=== PATIENT | male | born 1990 | race American Indian/Alaskan Native ===

== ENCOUNTER 2017-01-20 16:10 | Emergency (ER) | payer OTHER ==
[2017-01-20] MEDS ORDERED: Ketorolac 60 MG/2 ML SDV IM ONE (16:44)
--- NOTE | 2017-01-20 16:55 | EDM.PDOC ---
ED HPI Trauma - General Chief Complaint: Upper Extremity Injury/Pain Stated Complaint: LEFT ARM PAIN Time Seen by Provider: 01/20/17 16:30 Source: Reports: Patient History Limitations: Reports: No limitations - History of Present Illness INITIAL COMMENTS - FREE TEXT/NARRATIVE: 26 yo male was seen last year by a local PA for left epicondylitis. He was treated then with tramadol which he is out of. Pain has gotten worse again over the past week. Called the office and was referred to a pain clinic in [place] but cannot get in for a few weeks. He called an orthopedic doctor in [place] that he had also seen in the past and he cannot get in for a few weeks there either. Uses his hands a lot at work and so now due to the pain he comes from work for evaluation. Symptom Onset Date: 01/14/17 Occurred When: last week Occurred Where: work Method of Injury: other (likely overuse) Severity: severe Pain/Injury Location: Reports: upper extremity, left Consciousness: Reports: no loss of consciousness Associated Symptoms: Reports: denies other symptoms Allergies/ADRs: Allergies No Known Allergies Allergy (Verified 02/29/16 22:15) Home Medications: Ambulatory Orders clonazePAM [Clonazepam] 1 mg PO TID PRN 04/10/15 [Confirmed 08/17/16] Ibuprofen 800 mg PO TID PRN #30 tablet 01/20/17 Past Medical History - Past Health History Medical/Surgical History: Denies Medical/Surgical History Psychiatric History: Reports: Anxiety, Depression, Panic attack Social & Family History - Family History Family Medical History: Noncontributory - Tobacco Use Smoking Status *Q: Current Some Day Smoker Years of Tobacco use: 7 Packs/Tins Daily: 0.5 Used Tobacco, but Quit: No Second Hand Smoke Exposure: Yes - Caffeine Use Caffeine Use: Reports: Coffee, Soda, Tea - Alcohol Use Days Per Week of Alcohol Use: 1 Number of Drinks Per Day: 5 Total Drinks Per Week: 5 - Recreational Drug Use Recreational Drug Use: No Review of Systems - Review of Systems Review Of Systems: See Below Constitutional: Reports: no symptoms Respiratory: Reports: No Symptoms Cardiovascular: Reports: no symptoms GI/Abdominal: Reports: No symptoms Genitourinary: Reports: no symptoms Musculoskeletal: Reports: arm pain (L elbow) Skin: Reports: no symptoms Neurological: Reports: No Symptoms Psychiatric: Reports: no symptoms Trauma Exam - Physical Exam Exam: See Below Exam Limited By: No limitations General Appearance: Reports: alert, WD/WN, mild distress Head: Reports: atraumatic, normocephalic Extremities: Reports: no evidence of injury, normal range of motion, bony-point tenderness, pain with movement, tenderness, other (Tenderness over lateral epicondyle with resisted pronation. Also tender distal triceps area. ) Neurologic: Reports: no motor/sensory deficits, alert, normal mood/affect, oriented x 3 Skin: Reports: Normal color, Warm/dry Course - Vital Signs Text/Narrative:: Toradol 60 mg IM Tennis elbow strap given. - Orders/Labs/Meds Meds: Medications Discontinued Medications Generic Name Dose Route Start Last Admin Trade Name Freq PRN Reason Stop Dose Admin Ketorolac Tromethamine 60 mg 01/20/17 16:44 Toradol IM 01/20/17 16:45 ONETIME ONE Departure - Departure Time of Disposition: 17:00 Disposition: Home, Self-Care 01 Condition: fair Clinical Impression: Triceps tendonitis Tennis elbow Qualifiers: Laterality: left Qualified Code(s): M77.12 - Lateral epicondylitis, left elbow Prescriptions: Ibuprofen 800 mg PO TID PRN #30 tablet PRN Reason: Pain Referrals: PCP,None [Primary Care Provider] - Forms: Return to Work/School Form Additional Instructions: Take Ibuprofen 800 mg every 8 hrs with food. Add acetaminophen 1000 mg every 6 hrs for added relief as needed. Ice the tender areas 3 times a day for 20 minutes. Avoid using your left arm as much as possible. Follow up with Dr. Malave(orthopedics) as soon as possible. Wear the tennis elbow strap loosely and tighten it up when/if you need to use your left hand/arm to perform any tasks.
[2017-01-20 19:59] VITALS: BP 146/95
== END 2017-01-20 16:59 | disposition home or self-care (01) ==
LOC: FB.ED 16:10
DX: M77.8 Other enthesopathies, not elsewhere classified (principal)
CPT/HCPCS: 29125; 99282; J1885; 96372

== ENCOUNTER 2017-10-09 01:15 | Emergency (ER) | payer OTHER ==
[2017-10-09] MEDS ORDERED: Lidocaine 2% 5 ML SDV INFILT ONE (01:16)
[2017-10-09] MEDS ORDERED: Ketorolac 60 MG/2 ML SDV IM ONE (01:47)
[2017-10-09 03:08] VITALS: BP 142/88
--- NOTE | 2017-10-09 03:10 | ER ---
DATE SEEN: 10/09/2017 CHIEF COMPLAINT: Pain shoulder. HISTORY OF PRESENT ILLNESS: A 26-year-old male with pain in the left shoulder that started about 1900 left side, radiates to the neck with no direct trauma. Tried tramadol at home with no relief. PAST MEDICAL HISTORY: Chronic elbow pain. MEDICATIONS: 1. Tramadol p.r.n. 2. Xanax. ALLERGIES: No known allergies. PHYSICAL EXAMINATION: VITAL SIGNS: Blood pressure and temperature within normal limits. MUSCULOSKELETAL: Left shoulder, no obvious swelling or deformity. There is tenderness in the trapezius muscle and subscapular and supraspinatus muscles on the left side. Range of motion of the shoulder is normal. NECK: Supple. MENTAL STATUS: Anxious. IMPRESSION: Myofascial pain. PLAN: 1. I prepped the area on the left shoulder area, the 3 muscles above-mentioned where there was tenderness, and injected into the trigger point 0.5 mL of 2% lidocaine into three separate areas. There were no complications. 2. Toradol 60 mg IM. 3. Flexeril 10 mg at bedtime. 4. Naproxen 5 mg b.i.d. The patient is advised to see Rosanne Epstein on Thursday or return to the ED with worsening symptoms. TIME SEEN: 206. /[id number] VERONICA/NATTY
== END 2017-10-09 02:53 | disposition home or self-care (01) ==
LOC: FB.ED 01:15
DX: M79.1 Myalgia (principal); M25.512 Pain in left shoulder
CPT/HCPCS: 96372; 99282; J1885

== ENCOUNTER 2017-12-10 06:49 | Emergency (ER) | payer OTHER ==
[2017-12-10] MEDS ORDERED: Bupivacaine 0.5% 30 ML SDV INFILT ONE (06:50)
[2017-12-10] MEDS ORDERED: Thiamine 200 MG/2 ML MDV IM ONE (08:03)
[2017-12-10] MEDS ORDERED: Sodium Chloride 0.9% 1,000 ML IV ONE (08:03)
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
[2017-12-10 09:14] VITALS: BP 137/79
== END 2017-12-10 09:10 | disposition home or self-care (01) ==
LOC: FB.ED 06:49
DX: S41.102A Unspecified open wound of left upper arm, initial encounter (principal); F17.210 Nicotine dependence, cigarettes, uncomplicated; F10.129 Alcohol abuse with intoxication, unspecified; X99.1XXA Assault by knife, initial encounter
CPT/HCPCS: 12001; 80305; 99283

== ENCOUNTER 2019-06-05 18:30 | Emergency (ER) | payer OTHER ==
--- NOTE | 2019-06-05 19:15 | EDM.PDOC ---
ED HPI GENERAL MEDICAL PROBLEM - General Stated Complaint: R FOOT INJURY Time Seen by Provider: 06/05/19 18:30 Source of Information: Reports: Patient History Limitations: Reports: No Limitations - History of Present Illness INITIAL COMMENTS - FREE TEXT/NARRATIVE: 28 y.o.w.m came to the ed after his child stepped onto his right little toes. Pt took some Motrin with out relief. No open wound. No other acute med issues. BP 124/63 Pulse 109 o2 sat 98% on RA Temp 36.6 Onset Date: 06/05/19 Onset Time: 14:00 Duration: Hour(s): Location: Reports: Lower Extremity, Right (little toe) Quality: Reports: Dull Severity: Mild Improves with: Reports: Rest Worsens with: Reports: Movement Context: Reports: Trauma Associated Symptoms: Reports: No Other Symptoms - Related Data Allergies Allergy/AdvReac Type Severity Reaction Status Date / Time No Known Allergies Allergy Verified 10/31/18 07:11 Home Meds: Home Meds .Anxiety Medications--Name? 1 tab PO ASDIRECTED 10/31/18 [History] Past Medical History - Past Health History Medical/Surgical History: Denies Medical/Surgical History Musculoskeletal History: Reports: Other (See Below) Other Musculoskeletal History: L tennis & golf elbow Psychiatric History: Reports: Anxiety, Depression, Panic Attack - Past Surgical History Musculoskeletal Surgical History: Reports: None Social & Family History - Family History Family Medical History: Noncontributory - Caffeine Use Caffeine Use: Reports: Coffee, Soda Review of Systems - Review of Systems Review Of Systems: See Below Constitutional: Reports: No Symptoms Eyes: Reports: No Symptoms Ears: Reports: No Symptoms Nose: Reports: No Symptoms Mouth/Throat: Reports: No Symptoms Respiratory: Reports: No Symptoms Cardiovascular: Reports: No Symptoms GI/Abdominal: Reports: No Symptoms Genitourinary: Reports: No Symptoms Musculoskeletal: Reports: Other (right little toe) Skin: Reports: No Symptoms Neurological: Reports: No Symptoms Psychiatric: Reports: No Symptoms ED EXAM, GENERAL - Physical Exam Exam: See Below General Appearance: Alert, WD/WN, Mild Distress Eye Exam: Bilateral Eye: Normal Inspection Ears: Normal External Exam, Normal Canal Ear Exam: Bilateral Ear: Auricle Normal Nose: Normal Inspection, Normal Mucosa Throat/Mouth: Normal Inspection, Normal Lips, Normal Voice, No Airway Compromise Head: Atraumatic, Normocephalic Neck: Normal Inspection, Supple, Non-Tender, Full Range of Motion Respiratory/Chest: No Respiratory Distress, Lungs Clear, Normal Breath Sounds, Chest Non-Tender Cardiovascular: Normal Peripheral Pulses, Regular Rate, Rhythm, No Edema, No Gallop, No Rub Peripheral Pulses: 2+: Brachial (R) GI/Abdominal: Normal Bowel Sounds, Soft, Non-Tender (Male) Exam: Deferred Rectal (Males) Exam: Deferred Back Exam: Normal Inspection, Full Range of Motion Neurological: Alert, Oriented, CN II-XII Intact, Normal Cognition, Abnormal Gait (right toe pain) Psychiatric: Normal Affect, Normal Mood Skin Exam: Warm, Dry, Intact, Normal Color, No Rash Lymphatic: No Adenopathy Course - Vital Signs Text/Narrative:: 28 y.o.w.m came to the ed after his child stepped onto his right little toes. Pt took some Motrin with out relief. No open wound. No other acute med issues. BP 124/63 Pulse 109 o2 sat 98% on RA Temp 36.6 PE: WNWD W M with right tore pain Imaging: Right foot/5th toe: NAD, Official report is pending Impression: Righ 5th toe sprain Tx: [employer], ICE Reexam: Improved Plan: D/C with instructions - Orders/Labs/Meds Orders: Active Orders 24 hr Category Date Time Status Cooling Warming Measures [RC] ASDIRECTED Care 06/05/19 18:32 Active Toes Great Toe Rt T5 [CR] Stat Exams 06/05/19 18:31 Taken Ice Bag [Ice Therapy] [OM.PC] Routine Oth 06/05/19 18:32 Ordered Departure - Departure Time of Disposition: 19:13 Disposition: Home, Self-Care 01 Condition: Good Clinical Impression: Sprain of toe, fifth, right Qualifiers: Encounter type: initial encounter Qualified Code(s): S93.504A - Unspecified sprain of right lesser toe(s), initial encounter - Discharge Information Additional Instructions: Please take Motrin for pain, ICE to the affected area, please f/u, come back if your symptoms get worse acutely. - My Orders Last 24 Hours: My Active Orders 06/05/19 18:31 Toes Great Toe Rt T5 [CR] Stat 06/05/19 18:32 Cooling Warming Measures [RC] ASDIRECTED Ice Bag [Ice Therapy] [OM.PC] Routine - Assessment/Plan Last 24 Hours: My Active Orders 06/05/19 18:31 Toes Great Toe Rt T5 [CR] Stat 06/05/19 18:32 Cooling Warming Measures [RC] ASDIRECTED Ice Bag [Ice Therapy] [OM.PC] Routine
[2019-06-05 20:47] VITALS: BP 127/84; PULSE 99
== END 2019-06-05 19:37 | disposition home or self-care (01) ==
LOC: FB.ED 18:30
DX: S93.504A Unspecified sprain of right lesser toe(s), initial encounter (principal); W51.XXXA Accidental striking against or bumped into by another person, initial encounter
CPT/HCPCS: 73660-T5; 99283-25

== ENCOUNTER 2019-06-20 18:24 | Emergency (ER) | payer OTHER ==
[2019-06-20 21:02] VITALS: BP 144/90; PULSE 71
--- NOTE | 2019-06-24 14:01 | EDM.PDOC ---
ED HPI GENERAL MEDICAL PROBLEM - General Chief Complaint: Chest Pain Stated Complaint: ANXIETY,FAINT Time Seen by Provider: 06/20/19 19:00 Source of Information: Reports: Patient History Limitations: Reports: No Limitations - History of Present Illness INITIAL COMMENTS - FREE TEXT/NARRATIVE: patient presents with concern for sudden onset feeling like his heart was racing , very anxious and panicked. He took one of his PRN anxiety medications but then was worried so came to ER. No sweating, nausea, arm or jaw pain, feeling lightheaded, dizzy, changes in vision, chest pain, or any other symptoms. Was watching TV when it started. Has otherwise been well with no recent illness or anything else. Denies any drugs or other substance use. No difficulty when exerting recently, not real active in general. chest Pain Score (Numeric/FACES): 4 - Related Data Allergies Allergy/AdvReac Type Severity Reaction Status Date / Time No Known Allergies Allergy Verified 10/31/18 07:11 Home Meds: Home Meds .Anxiety Medications--Name? 1 tab PO ASDIRECTED 10/31/18 [History] Past Medical History - Past Health History Medical/Surgical History: Denies Medical/Surgical History Musculoskeletal History: Reports: Other (See Below) Other Musculoskeletal History: L tennis & golf elbow Psychiatric History: Reports: Anxiety, Depression, Panic Attack - Past Surgical History Musculoskeletal Surgical History: Reports: None Social & Family History - Family History Family Medical History: Noncontributory - Tobacco Use Smoking Status *Q: Unknown Ever Smoked - Caffeine Use Caffeine Use: Reports: Coffee, Soda ED ROS GENERAL - Review of Systems Review Of Systems: ROS reveals no pertinent complaints other than HPI. ED EXAM, GENERAL - Physical Exam Exam: See Below Free Text/Narrative:: general: alert, slightly anxious male in no acute distress. Pupils equal and reactive, mucus membranes moist, neck supple, heart regular rate and rhythm, I do not hear a murmur. Lungs clear throughout no wheezes or crackles. Peripheral pulses +2 in both upper and lower extremity with no edema. Abdomen soft, nontender. Makes good eye contact and answered questions appropriately, no evidence of paranoia or hallucinations. Course - Vital Signs Text/Narrative:: EKG unremarkable. No other findings on exam. Suspect panic attack, which patient also believes. He has no history of arthymia or any other heart problems. Asking for discharge at this time. Troponin ordered, I don't think other labs helpful at this point. Last Recorded V/S: Last Vital Signs Temp 36.6 C 06/20/19 20:44 Pulse 71 06/20/19 20:44 Resp 16 06/20/19 20:44 BP 144/90 H 06/20/19 20:44 Pulse Ox 99 06/20/19 20:44 - Orders/Labs/Meds Labs: Laboratory Tests 06/20/19 Range/Units 19:59 Troponin I < 0.017 L (<0.017-0.056) ng/mL - Re-Assessments/Exams Free Text/Narrative Re-Assessment/Exam: troponin negative. Patient still feeling much better. Discharge to home Departure - Departure Time of Disposition: 19:40 Disposition: Refer to Observation Condition: Good Clinical Impression: Panic attack - Discharge Information *PRESCRIPTION DRUG MONITORING PROGRAM REVIEWED*: Not Applicable *COPY OF PRESCRIPTION DRUG MONITORING REPORT IN PATIENT JOANNE: Not Applicable Instructions: Panic Attack Referrals: Rosanne Epstein NP [Primary Care Provider] - Forms: ED Department Discharge Additional Instructions: Do some relaxation techniques like deep breathing exercises if it happens again. Follow up with your Primary Care Provider as needed. May come back if having chest pain radiating to jaw and back associated with sweating and shortness of breath. May call if you have any questions.
== END 2019-06-20 20:58 | disposition admitted as inpatient to this hospital (09) ==
LOC: FB.ED 18:24
DX: F41.0 Panic disorder [episodic paroxysmal anxiety] (principal)
CPT/HCPCS: 36415; 84484; 93005; 99284-25